=== PATIENT | female | born 1965 | race Caucasian/White ===

== ENCOUNTER 2016-11-25 14:58 | Emergency (ER) | payer OTHER | END 2016-11-25 18:35 | disposition home or self-care (01) | LOC: ER 14:58 | DX: J95.863 Postprocedural seroma of a respiratory system organ or structure following other procedure (principal); J90 Pleural effusion, not elsewhere classified; J44.9 Chronic obstructive pulmonary disease, unspecified; K86.1 Other chronic pancreatitis; F17.210 Nicotine dependence, cigarettes, uncomplicated; Z90.89 Acquired absence of other organs; Z79.899 Other long term (current) drug therapy | CPT/HCPCS: 36415; Q9967 ==